=== PATIENT | female | born 1960 | race Caucasian/White ===

== ENCOUNTER 2020-03-09 08:09 | Outpatient (CLI) | payer BC ==
[~2020-03-09] VITALS: Ht 167.7 cm; Wt 68.0 kg
[2020-03-09 12:00] VITALS: BP 116/78
[2020-03-09] MEDS ORDERED: diphenhydrAMINE 50 MG/ML INJ (BENADRYL) IV PRN (12:30)
[2020-03-09] MEDS ORDERED: EPINEPHrine INJECTION 1 MG/ML AMP IM PRN (12:30)
[2020-03-09] MEDS ORDERED: BAMLANIVIMAB 700 MG in NS 200 ML IV ONE (12:30)
[2020-03-09 14:00] VITALS: BP 111/67
== END 2020-03-09 14:55 | disposition home or self-care (01) ==
LOC: INFUSION 08:09
PROVIDERS: ATTEND Nurse Practitioner Community Health
DX: U07.1 COVID-19 (principal)